=== PATIENT | female | born 1930 | race Caucasian/White ===

== ENCOUNTER 2016-10-26 04:23 | Emergency (ER) | payer MEDICARE ==
--- NOTE | 2016-10-26 05:09 | ED Physician Documentation ---
History of Present Illness - Stated complaint Stated Complaint: HEAD LAC - Chief complaint Chief Complaint: Trauma Hd/Nk - Additonal information Additional information: 78-year-old female who lives at home. He is here with her daughter who is also a geological sample tester. She has moderate to advanced dementia. She has been in her normal state of health recently. The patient fell tonight and her daughter believes it was a mechanical fall. The patient injured her left forearm and also has a laceration to the left aspect of PD PAST MEDICAL HISTORY - Past Medical History Cardiovascular: Hypertension, MO Neuro: Dementia : Incontinence, Frequency Musculoskeletal: Osteoarthritis - Past Surgical History Past Surgical History: Yes General: Cholecystectomy Ortho: Hip replacement Cardiovascular: Pacemaker - Present Medications Home Medications: Ambulatory Orders Medication Instructions Recorded Confirmed Carvedilol [Coreg] 25 mg PO DAILY 07/05/15 07/05/15 HYDROcod/ACETAM 5/325 [Vicodin 1 each PO DAILY 07/05/15 07/05/15 5/325] Oxybutynin [Ditropan] 5 mg PO BID 07/05/15 07/05/15 - Allergies Allergies/Adverse Reactions: Allergies Allergy/AdvReac Type Severity Reaction Status Date / Time Sulfa (Sulfonamide Allergy Unknown Verified 07/05/15 09:25 Antibiotics) - Social History Does the pt smoke?: No Smoking Status: Former smoker PD ED PE NORMAL - General General: Alert and oriented X 3 (Patient is awake and alert but she is disoriented to person place and time. She has a small cephalohematoma and a traumatic small laceration over the left parietal area of her scalp that is bleeding mildly.), No acute distress, Well developed/nourished, Other - HEENT HEENT: Atraumatic, PERRL, EOMI, Pharynx benign - Cardiac Cardiac: RRR, No murmur, No gallop, No rub - Respiratory Respiratory: No respiratory distress - Abdomen Abdomen: Normal bowel sounds - Back Back: No CVA TTP - Derm Derm: Normal color, Warm and dry - Extremities Extremities: Other (sSoft tissue swelling and small hematoma seen of the left distal ulna left arm. A small amount of bruising in the hand between the first and second metacarpal) Results - Vitals Vitals: Vital Signs - 24 hr 10/26/16 10/26/16 04:30 06:31 Temperature 36.7 C Heart Rate 70 66 Respiratory 15 16 Rate Blood Pressure 163/106 H 169/98 H O2 Saturation 98 97 Oxygen O2 Source Room air PD MEDICAL DECISION MAKING - ED course ED course: Well-appearing demented elderly female who had a mechanical fall according to family members there is no concern for any medical issue going on. On examination she has a small cephalohematoma abrasion and scalp laceration left parietal side. Her neck is clinically normal. The left hand was bruised over the dorsal between the first and second metatarsals and there is a small hematoma over the distal ulna. CT scan of the head was done and and is unremarkable radiographs of the wrist were done and are also unremarkable. We will put the left wrist in a Velcro splint. While cleaning up the laceration of left parietal area and started having a small arteriolar bleeding that required direct pressure, the placement is of a absorbable suture and then ultimately several crystal to control the bleeding. Direct pressure is placed and is been washed for over hour and there is no further bleeding present. At this point in time the patient will be cleaned up and will be allowed to just be discharged to home Disposition: Discharged to home Clinical impression: 1. Scalp abrasion with arterial bleeding status post suture and staple closure 2. Left wrist contusion without evidence of bony fracture Departure - Departure Disposition: 01 Home, Self Care Clinical Impression: Laceration, Head injury due to trauma Condition: Good Instructions: ED Head Injury Closed, ED Laceration Scalp Stitch Or Stap
[2016-10-26] MEDS ORDERED: LIDOCAINE 2%-EPI 1:100000 20 ML MDV ONE (05:13)
--- NOTE | 2016-10-26 06:50 | XRAY Preliminary Report ---
Exam: XR Wrist 3 View LT IMPRESSION: Moderate soft tissue swelling without evident acute displaced fracture. Osteopenia reduce s sensitivity and specificity. [facility] SITE ID: [id number]
--- NOTE | 2016-10-26 06:51 | CT Preliminary Report ---
Exam: CT Head W/O IMPRESSION: Generalized age-related cortical atrophic changes without evidence of acute intracranial abnormality. [facility] SITE ID: [id number]
--- NOTE | 2016-10-26 06:53 | XRAY Report ---
EXAM: LEFT WRIST RADIOGRAPHY EXAM DATE: 10/26/2016 06:38 AM. CLINICAL HISTORY: Fall and injury. COMPARISON: None. TECHNIQUE: 3 views. FINDINGS: Bones: Bones are osteopenic. No definite acute displaced fracture or suspicious bony lesion noted. Joints: There is moderate first MCP degenerative change. Soft Tissues: Moderate medial as well as dorsal soft tissue swelling. Small vessel calcifications. IMPRESSION: Moderate soft tissue swelling without evident acute displaced fracture. Osteopenia reduce s sensitivity and specificity. [facility] Referring Provider Line: [phone] SITE ID: [id number]
--- NOTE | 2016-10-26 06:54 | CT Report ---
EXAM: CT HEAD EXAM DATE: 10/26/2016 06:37 AM. CLINICAL HISTORY: Fall with head injury COMPARISON: None. TECHNIQUE: Multiaxial CT images were obtained from the foramen magnum to the vertex. IV contrast: Non e. Reformats: Coronal. In accordance with CT protocol optimization, one or more of the following dose reduction techniques w ere utilized for this exam: automated exposure control, adjustment of mA and/or KV based on patient s ize, or use of iterative reconstructive technique. FINDINGS: Parenchyma: No intraparenchymal hemorrhage. No evidence of mass, midline shift, or CT findings of acu te infarction. Patten-white differentiation is distinct. Extraaxial Spaces: Normal for age. No subdural or epidural collections identified. Ventricles: The ventricles and cortical sulci are enlarged, consistent with age-related tissue loss. Sinuses: Complete opacification of the upper left maxillary antrum, entire sinus is not imaged. Other visualized paranasal sinuses and mastoids are unremarkable. Bones: No evidence of fracture or calvarial defect. Other: Diffuse chronic microangiopathic white matter changes are evident. Scalp swelling and skin crystal over the left convexity. IMPRESSION: Generalized age-related cortical atrophic changes without evidence of acute intracranial abnormality. [facility] Referring Provider Line: [phone] SITE ID: [id number]
--- NOTE | 2016-10-26 06:59 | CT Preliminary Report ---
Exam: CT Cervical Spine W/O IMPRESSION: Degenerative changes in the cervical spine as outlined above. No fracture is identified in the cervical spine. Mild compression deformity of T2, age-indeterminate but likely chronic. If further imaging is felt to be necessary, consider MR. ROCHA SITE ID: [id number]
--- NOTE | 2016-10-26 07:02 | CT Report ---
EXAM: CT CERVICAL SPINE WITHOUT CONTRAST DATE: 10/26/2016 06:36 AM HISTORY: Fall with head injury COMPARISONS: None. TECHNIQUE: Thin-section axial images were acquired of the cervical spine without contrast. Post-proce ssing: Coronal and sagittal reformats. Other: None. In accordance with CT protocol optimization, one or more of the following dose reduction techniques w ere utilized for this exam: automated exposure control, adjustment of mA and/or KV based on patient s ize, or use of iterative reconstructive technique. FINDINGS: Alignment: Accentuated upper thoracic kyphosis Bones: Prominent diffuse osteopenia. No fracture is identified in the cervical spine. Mild compressio n deformity of T2, age-indeterminate but likely chronic. Interspace Levels/Facets: C1-C2: Unremarkable. C2-C3: Moderate left-sided facet osteoarthritis. C3-C4: Severe disk space narrowing. Endplate osteophyte mildly narrows the central canal. Severe bila teral foraminal stenosis. C4-C5: Severe disk space narrowing. Endplate osteophyte mildly narrows the central canal. Severe bila teral foraminal stenosis. C5-C6: Severe disk space narrowing. Endplate osteophyte mildly narrows the central canal. Severe bila teral foraminal stenosis. C6-C7: Unremarkable. C7-T1: Unremarkable. Musculature: Normal. No fatty atrophy. Other: The paravertebral and prevertebral soft tissues are normal. The lung apices are clear. Double lead pacemaker in position. IMPRESSION: Degenerative changes in the cervical spine as outlined above. No fracture is identified in the cervical spine. Mild compression deformity of T2, age-indeterminate but likely chronic. If further imaging is felt to be necessary, consider MR. ROCHA Referring Provider Line: [phone] SITE ID: [id number]
[2016-10-26 07:19] VITALS: BP 159/70
== END 2016-10-26 07:28 | disposition home or self-care (01) ==
LOC: ED 04:23
DX: S01.01XA Laceration without foreign body of scalp, initial encounter (principal); S60.212A Contusion of left wrist, initial encounter; W19.XXXA Unspecified fall, initial encounter; Y92.009 Unspecified place in unspecified non-institutional (private) residence as the place of occurrence of the external cause; R58 Hemorrhage, not elsewhere classified; F03.90 Unspecified dementia, unspecified severity, without behavioral disturbance, psychotic disturbance, mood disturbance, and anxiety; I10 Essential (primary) hypertension; I25.2 Old myocardial infarction; Z96.649 Presence of unspecified artificial hip joint
CPT/HCPCS: 70450; 72125; 99281; 99283

== ENCOUNTER 2018-06-19 21:48 | Emergency (ER) | payer MEDICARE ==
--- NOTE | 2018-06-19 22:11 | ED Physician Documentation ---
History of Present Illness - Stated complaint Stated Complaint: SOA - Chief complaint Chief Complaint: General - History obtained from History obtained from: Patient, Family - History of Present Illness Timing: Yesterday - Additonal information Additional information: 87-year old female who is been in her usual frail state of health until yesterday when she developed a fever and she has become withdrawn disinterested in food and drink and has developed some shortness of breath. Review of Systems Constitutional: reports: Fever, Fatigue Eyes: denies: Decreased vision Ears: denies: Ear pain Nose: denies: Rhinorrhea / runny nose, Congestion Throat: denies: Sore throat Cardiac: denies: Chest pain / pressure, Palpitations, Pedal edema, Calf pain Respiratory: reports: Dyspnea, Cough GI: denies: Nausea, Vomiting, Constipation, Diarrhea : denies: Dysuria Skin: denies: Rash Musculoskeletal: denies: Neck pain, Back pain, Extremity pain Neurologic: reports: Generalized weakness. denies: Focal weakness, Numbness PD PAST MEDICAL HISTORY - Past Medical History Cardiovascular: Hypertension, MO : Incontinence, Frequency Musculoskeletal: Osteoarthritis - Past Surgical History Past Surgical History: Yes General: Cholecystectomy Ortho: Hip replacement Cardiovascular: Pacemaker - Present Medications Home Medications: Ambulatory Orders Medication Instructions Recorded Confirmed Carvedilol [Coreg] 25 mg PO DAILY 07/05/15 06/19/18 Oxybutynin [Ditropan] 5 mg PO BID 07/05/15 06/19/18 RX: Aspirin 325 mg PO DAILY 06/19/18 06/19/18 - Allergies Allergies/Adverse Reactions: Allergies Allergy/AdvReac Type Severity Reaction Status Date / Time Sulfa (Sulfonamide Allergy Unknown Verified 06/19/18 22:05 Antibiotics) - Social History Does the pt smoke?: No Smoking Status: Former smoker PD ED PE NORMAL - Vitals Vital signs reviewed: Yes (tachypneic and near hypoxia) - General General: Other (pale elderly female with delay in execution of motor commands does answer appropriately ) - HEENT HEENT: Atraumatic, PERRL, EOMI, Other (dry mucous membranes) - Neck Neck: Supple, no meningeal sign, No bony TTP - Cardiac Cardiac: RRR, No murmur, Other (There is a pacer in place on the left chest) - Respiratory Respiratory: Other (tacahypneic at rest with no breath sounds on the left ) - Abdomen Abdomen: Soft, Non tender - Back Back: No CVA TTP, No spinal TTP - Derm Derm: Normal color, Warm and dry, No rash - Extremities Extremities: No deformity, No edema - 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 ) Results - Vitals Vitals: Vital Signs - 24 hr 06/19/18 06/19/18 06/19/18 21:55 22:07 23:15 Temperature 36.8 C Heart Rate 78 77 81 Respiratory 24 28 H 11 L Rate Blood Pressure 129/69 152/94 H 129/64 O2 Saturation 93 96 98 Oxygen O2 Source Nasal cannula Oxygen Flow Rate 2 - Labs Labs: Laboratory Tests 06/19/18 06/19/18 06/19/18 22:05 22:05 22:05 WBC 17.1 H RBC 4.09 L Hgb 12.4 Hct 37.8 MCV 92.3 MCH 30.3 MCHC 32.9 RDW 14.2 Plt Count 220 MPV 8.8 Neut # (Auto) 14.8 H Lymph # (Auto) 1.0 L Freestone # (Auto) 1.3 H Eos # (Auto) 0.0 Baso # (Auto) 0.1 Absolute Nucleated RBC 0.01 Nucleated RBC % 0.0 Sodium 131 L Potassium 4.6 Chloride 94 L Carbon Dioxide 26 Anion Gap 11.0 BUN 37 H Creatinine 1.1 H Estimated GFR (MDRD) 47 L Glucose 148 H Lactic Acid Calcium 9.1 Total Bilirubin 1.0 AST 73 H ALT 27 Alkaline Phosphatase 55 Troponin I 1.62 H* Total Protein 7.4 Albumin 3.2 Globulin 4.2 Albumin/Globulin Ratio 0.8 L Lipase 25 Urine Color Urine Clarity Urine pH Ur Specific Fourmile Urine Protein Urine Glucose (UA) Urine Ketones Urine Occult Blood Urine Nitrite Urine Bilirubin Urine Urobilinogen Ur Leukocyte Esterase Urine RBC Urine WBC Ur Squamous Epith Cells Urine Bacteria Ur Microscopic Review Urine Culture Comments 06/19/18 06/19/18 22:05 22:45 WBC RBC Hgb Hct MCV MCH MCHC RDW Plt Count MPV Neut # (Auto) Lymph # (Auto) Freestone # (Auto) Eos # (Auto) Baso # (Auto) Absolute Nucleated RBC Nucleated RBC % Sodium Potassium Chloride Carbon Dioxide Anion Gap BUN Creatinine Estimated GFR (MDRD) Glucose Lactic Acid 3.2 H* Calcium Total Bilirubin AST ALT Alkaline Phosphatase Troponin I Total Protein Albumin Globulin Albumin/Globulin Ratio Lipase Urine Color YELLOW Urine Clarity CLOUDY Urine pH 6.0 Ur Specific Fourmile 1.025 Urine Protein 30 H Urine Glucose (UA) NEGATIVE Urine Ketones TRACE Urine Occult Blood SMALL H Urine Nitrite NEGATIVE Urine Bilirubin NEGATIVE Urine Urobilinogen 1 (NORMAL) Ur Leukocyte Esterase SMALL H Urine RBC 6-10 H Urine WBC >25 H Ur Squamous Epith Cells FEW Squamous Urine Bacteria Many H Ur Microscopic Review INDICATED Urine Culture Comments INDICATED - Rads (name of study) chest 1 view Radiology: Prelim report reviewed (Impression: Moderate focal consolidation in the right upper lobe concerning for pneumonia. Lung mass is not excluded. Short-term follow-up imaging is recommended to ensure resolution. Left proximal humeral diaphysis focal sclerosis measuring 1 cm could represent a bone island, however blastic metastasis is not excluded.), EMP read indepedently, See rad report PD MEDICAL DECISION MAKING - ED course Complexity details: reviewed old records, reviewed results, re-evaluated larry ahumada, considered differential, d/w patient, d/w family ED course: 87-year-old female previously in her frail state has become less responsive and weak today. She was initially thought to likely have a respiratory illness and a chest x-ray showed some right upper lobe infiltrate, however, her troponin came back 1.62 an electrocardiogram was done in retrospect, which demonstrated ST elevation in inferior leads. I did discuss the case with the family and they were desiring immediate treatment. The patient was administered the usual medications for STEMI including a heparin bolus and drip, Plavix, aspirin and metoprolol. Dr. Lopez, at the [facility], was contacted in the case will accept the patient in transfer. The patient does appear to have urinary tract infection as well and she is administered a gram of Rocephin intravenously. Departure - Departure Disposition: 02 Transfer Acute Care Hosp Clinical Impression: STEMI (ST elevation myocardial infarction), Urinary tract infection, Pneumonia Condition: Serious Discharge Date/Time: 06/19/18 23:40
[2018-06-19 22:17] LABS: BASOPHILS # (AUTO) 0.1 10^3/uL (0.0-0.1); BASOPHILS % (AUTO) 0.3 %; HGB - HEMOGLOBIN 12.4 g/dL (12.0-16.0); LYMPHOCYTES % (AUTO) 5.8 %; MEAN CORPUSCULAR HEMOGLOBIN 30.3 pg (27.0-31.0); MEAN CORPUSCULAR HGB CONC 32.9 g/dL (32.0-36.0); MEAN CORPUSCULAR VOLUME 92.3 fL (81.0-99.0); MEAN PLATELET VOLUME 8.8 fL (7.9-10.8); MONOCYTES # (AUTO) 1.3 10^3/uL (0.0-1.0); MONOCYTES % (AUTO) 7.5 %; NEUTROPHILS # (AUTO) 14.8 10^3/uL (1.5-6.6); NEUTROPHILS % (AUTO) 86.4 %; PLT - PLATELET COUNT 220 10^3/uL (130-450); RED BLOOD COUNT 4.09 10^6/uL (4.20-5.40); RED CELL DISTRIBUTION WIDTH 14.2 % (12.0-15.0); WHITE BLOOD COUNT 17.1 x10^3/uL (4.8-10.8)
[2018-06-19 22:31] LABS: ALBUMIN 3.2 g/dL (3.2-5.5); ALBUMIN/GLOBULIN RATIO 0.8 (1.0-2.2); CALCIUM 9.1 mg/dL (8.5-10.3); CREATININE 1.1 mg/dL (0.4-1.0); TOTAL PROTEIN 7.4 g/dL (6.7-8.2)
--- NOTE | 2018-06-19 22:40 | XRAY Report ---
Reason: dyspnea absent breath sounds left Procedure Date: 06/19/2018 Accession Number: [id number] / [id number] Procedure: XR - Chest 1 View X-Ray CPT Code: 92559 FULL RESULT: EXAM: CHEST RADIOGRAPHY EXAM DATE: 06/19/2018 10:25 PM. CLINICAL HISTORY: Dyspnea absent breath sounds left. COMPARISON: None. TECHNIQUE: 1 view. FINDINGS: Lungs/Pleura: Moderate focal consolidation in the right upper lobe concerning for pneumonia. Hyperinflated lungs. No pleural effusion or pneumothorax. Biapical pleural calcifications suspected. Mediastinum: Within exam limitations, the cardiomediastinal contour is normal. Other: Dual lead pacemaker. Left proximal humeral diaphysis focal sclerosis measuring 1 cm, could represent a bone island, however blastic metastasis is not excluded. IMPRESSION: Moderate focal consolidation in the right upper lobe concerning for pneumonia. Lung mass is not excluded. Short-term follow-up imaging is recommended to ensure resolution. Left proximal humeral diaphysis focal sclerosis measuring 1 cm, could represent a bone island, however blastic metastasis is not excluded. [facility]
[2018-06-19 22:56] LABS: GLUCOSE, URINE (UA) NEGATIVE (NEGATIVE); KETONES,URINE (UA) TRACE mg/dL (NEGATIVE); LEUKOCYTE ESTERASE, URINE SMALL (NEGATIVE); NITRITE,URINE NEGATIVE (NEGATIVE); OCCULT BLOOD,URINE SMALL (NEGATIVE); PROTEIN,URINE 30 mg/dL (NEGATIVE); UROBILINOGEN,URINE 1 (NORMAL) E.U./dL (NORMAL)
[2018-06-19 23:02] LABS: BILIRUBIN,URINE NEGATIVE (NEGATIVE); ICTOTEST,URINE NEGATIVE
[2018-06-19 23:03] LABS: BACTERIA,URINE Many /HPF (None Seen); CLARITY,URINE CLOUDY (CLEAR); SQUAMOUS EPITHELIAL CELL,UR FEW Squamous (<= Few)
[2018-06-19] MEDS ORDERED: HEPARIN 25000UNITS/500ML (D5W) 25,000 UNIT/500 ML BAG IV STA (23:15)
[2018-06-19] MEDS ORDERED: HEPARIN 5,000 UNIT/ML VIAL IVP STA (23:15)
[2018-06-19 23:16] VITALS: BP 129/64
[2018-06-19] MEDS ORDERED: CLOPIDOGREL 300 MG TABLET PO STA (23:16)
[2018-06-19] MEDS ORDERED: METOPROLOL 5 MG/5 ML VIAL IVP STA (23:16)
[2018-06-19] MEDS ORDERED: ASPIRIN CHEW 81 MG TABLET PO STA (23:16)
[2018-06-19] MEDS ORDERED: NITROGLYCERIN SL 0.4 MG TABLET SL ONE (23:17)
[2018-06-19] MEDS ORDERED: cefTRIAXone 1 GM in SODIUM CHLORIDE 0.9% MINIBAG 100 ML IV STA (23:17)
[2018-06-19] MEDS ORDERED: ASPIRIN CHEW 81 MG TABLET ONE (23:17)
[2018-06-19] MEDS ORDERED: HEPARIN 5,000 UNIT/ML VIAL ONE (23:18)
[2018-06-19] MEDS ORDERED: METOPROLOL TARTRATE 50 MG TABLET ONE (23:18)
[2018-06-19] MEDS ORDERED: CLOPIDOGREL 300 MG TABLET PO ONE (23:18)
[2018-06-19] MEDS ORDERED: HEPARIN 25000UNITS/500ML (D5W) 25,000 UNIT/500 ML BAG IV ONE (23:19)
[2018-06-19] MEDS ORDERED: METOPROLOL TARTRATE 50 MG TABLET PO STA (23:22)
== END 2018-06-19 23:40 | disposition short-term general hospital (02) ==
LOC: ED 21:48
DX: I21.3 ST elevation (STEMI) myocardial infarction of unspecified site (principal); R06.82 Tachypnea, not elsewhere classified; R94.31 Abnormal electrocardiogram [ECG] [EKG]; I10 Essential (primary) hypertension; I25.2 Old myocardial infarction; Z95.0 Presence of cardiac pacemaker; Z96.649 Presence of unspecified artificial hip joint; Z87.891 Personal history of nicotine dependence
CPT/HCPCS: 36415; 71045; 80053; 81001; 83605; 83690; 84484; 85025; 87040; 87086; 93005; 96374; 96375; 96376; 99284; A9270; 81003; 87181; 99285

== ENCOUNTER 2018-06-19 23:52 | Outpatient (CLI) | payer MEDICARE | END 2018-06-19 23:53 | disposition short-term general hospital (02) | LOC: EMS 23:52 | PROVIDERS: ATTEND Surgery | DX: I21.3 ST elevation (STEMI) myocardial infarction of unspecified site (principal) | CPT/HCPCS: A0425; A0426 ==